=== PATIENT | male | born 1960 | race Caucasian/White ===

== ENCOUNTER → 2016-04-13 | Outpatient (REF) | payer OTHER | LOC: M LAB REF 12:06 | PROVIDERS: ATTEND Physician Assistant | DX: J02.9 Acute pharyngitis, unspecified (principal) ==

== ENCOUNTER → 2016-05-01 | Outpatient (REF) | payer OTHER | LOC: M LAB REF 12:11 | PROVIDERS: ATTEND Physician Assistant | DX: R30.0 Dysuria (principal) ==

== ENCOUNTER 2016-09-15 00:27 | Emergency (ER) | payer OTHER ==
[~2016-09-15] VITALS: Ht 185.4 cm; Wt 127.0 kg
[2016-09-15] MEDS ORDERED: RANI150C PO (01:55)
[2016-09-15] MEDS ORDERED: VIAG100T PO (01:55)
[2016-09-15 02:39] LABS: BASO % 0.6 % (0.0-1.0); EOS # 0.2 K/mm3 (0.0-0.50); EOS % 2.7 % (0.0-3.0); LARGE UNSTAINED CELL # 0.1 K/mm3 (0.0-0.4); LYMPH # 1.8 K/mm3 (1.5-4.5); LYMPH % 29.1 % (24.0-44.0); MEAN CORPUSCULAR HEMOGLOBIN 31.6 pg (27.0-33.0); MEAN CORPUSCULAR HGB CONC 33.9 g/dl (32.0-36.5); MEAN CORPUSCULAR VOLUME 93.2 fl (80.0-96.0); MONO # 0.4 K/mm3 (0.0-0.8); MONO % 6.6 % (0.0-5.0); NEUTROPHILS # 3.4 K/mm3 (1.8-7.7); PLATELET COUNT, AUTOMATED 183 k/mm3 (150-450); RED CELL DISTRIBUTION WIDTH 12.3 % (11.5-14.5); WHITE BLOOD COUNT 5.8 K/mm3 (4.0-10.0)
[2016-09-15 03:08] LABS: ANION GAP 5 MEQ/L (8-16); BLOOD UREA NITROGEN 19 MG/DL (7-18); CALCIUM LEVEL 9.3 MG/DL (8.5-10.1); CARBON DIOXIDE LEVEL 30 MEQ/L (21-32); CHLORIDE LEVEL 103 MEQ/L (98-107); CREATININE FOR GFR 1.15 MG/DL (0.70-1.30); GLOMERULAR FILTRATION RATE > 60.0 (>56); GLUCOSE, FASTING 114 MG/DL (70-105); POTASSIUM SERUM 4.3 MEQ/L (3.5-5.1); SODIUM LEVEL 138 MEQ/L (136-145)
[2016-09-15 04:10] VITALS: BP 134/80
--- NOTE | 2016-09-15 08:30 | ECGEPIP ---
Stationary ECG Study [facility] - ED Test Date: 2016-09-15 Pat Name: YOKO MAGAÑA Department: Room: - Gender: M Extern: luiza : 1960 Requested By: RAZIA YUNG Order Number: [id number] Reading MD: Cipriano Cagle Measurements Intervals Strum Rate: 81 P: 42 AZ: 160 QRS: -20 QRSD: 91 T: 9 QT: 362 QTc: 422 Interpretive Statements SINUS RHYTHM Electronically Signed On 09-15-2016 8:30:03 EDT by Cipriano Cagle
== END 2016-09-15 04:16 | disposition home or self-care (01) ==
LOC: M ED 03:09
DX: I49.1 Atrial premature depolarization (principal); K21.9 Gastro-esophageal reflux disease without esophagitis; Z88.8 Allergy status to other drugs, medicaments and biological substances; Z87.891 Personal history of nicotine dependence

== ENCOUNTER → 2016-10-31 | Outpatient (CLI) | payer OTHER ==
[~2016-10-31] MED LIST: RANI150C PO; VIAG100T PO
--- NOTE | 2016-10-31 18:31 | REP ---
Lumbar spine complete: 10/31/2016: Clinical history: Low back pain. Five views provided. The pedicles, spinous and transverse processes are grossly intact in the frontal view. There is no abnormality of the SI joints, sacral ala and foramina. Lower thoracic levels and visualized ribs intact. There is no spondylolysis or spondylolisthesis. The normal lordosis on the lateral view is maintained. The slight disc space narrowing at L4-5 and L5-S1. No compression deformity or destructive lesion. Impression: 1. Minor degenerative disc changes in the lower lumbar spine and facet arthropathy at L4-5 and L5-S1. No compression deformity, destructive lesion, spondylolysis or other acute finding. Signed by Roger Maddox MD 10/31/2016 07:13 P
== END ==
LOC: M ADAMS 13:20
PROVIDERS: ATTEND Physician Assistant Medical
DX: M54.5 Low back pain (principal)

== ENCOUNTER → 2016-11-05 | Outpatient (REF) | payer OTHER | LOC: M LAB REF 09:49 | PROVIDERS: ATTEND Physician Assistant | DX: N41.0 Acute prostatitis (principal) ==

== ENCOUNTER → 2016-11-09 | Outpatient (REF) | payer OTHER | LOC: M SMT 12:47 | PROVIDERS: ATTEND Nurse Practitioner Women's Health | DX: N48.89 Other specified disorders of penis (principal) ==

== ENCOUNTER → 2016-11-13 | Outpatient (CLI) | payer OTHER ==
--- NOTE | 2016-11-13 11:31 | REP ---
MRI lumbar spine without contrast: History: Disc degeneration. Comparison radiographs are from October 31, 2016. Technique: Sagittal and axial T1 and T2-weighted scans are acquired in the usual fashion with and without fat saturation. Sequences include spin echo, turbo spin-echo, and STIR imaging sequences. MRI findings: There is straightening of the normal lumbar lordosis. Lumbar vertebral body heights are preserved. Alignment is normal. No extra spinal abnormality is seen. Normal caliber aorta is observed. The conus medullaris is normal in position and appearance at T12-L1. There is degenerative disc narrowing and decreased disc space signal intensity at each level from L1-2 through L5-S1. No disc protrusion is seen. There is mild facet hypertrophy bilaterally at L5-S1 and to a lesser degree at L4-5. Mild facet joint fluid is seen and L4-5 bilaterally. No neural foraminal encroachment is seen. There is no evidence of spondylolysis or spondylolisthesis. Impression: Mild degenerative spondylosis changes. No disc protrusion, central canal stenosis, or neural foraminal encroachment is appreciated. Signed by Milton Freedman MD 11/13/2016 02:10 P
== END ==
LOC: M PLARAD 09:25
PROVIDERS: ATTEND Physician Assistant
DX: M51.36 Other intervertebral disc degeneration, lumbar region (principal)

== ENCOUNTER → 2016-12-11 | Outpatient (CLI) | payer OTHER ==
--- NOTE | 2016-12-11 10:47 | REP ---
Clinical: Back and flank pain. Technique: Real time new scale ultrasound examination using curved array transducer. Findings: Right kidney measures 12.5 x 6.0 x 5.0 cm and includes 8-0.3 x 2.1 x 1.8 cm upper pole hypoechoic lesion and 1.8 x 1.8 x 1.9 cm hypoechoic mid pole lesion which may represent complex cysts. No obvious nephrolithiasis or hydronephrosis. Left kidney measures 11.6 x 5.3 x 5.0 cm and includes 3.0 x 1.9 x 3.8 centimeter lobulated hypoechoic lesion in the upper pole which may represent complex cyst. No obvious nephrolithiasis or hydronephrosis. Bladder is unremarkable and without wall thickening or mass lesion currently measuring approximately 7.2 x 7.5 x 6.4 cm. Impression: Bilateral hypoechoic renal lesions likely representing complex cysts. Pre and postcontrast of the abdomen may be warranted for further, more definitive evaluation. Signed by Juan Francisco Carter MD 12/11/2016 10:39 A
--- NOTE | 2016-12-11 11:08 | REP ---
Clinical: History of testicular cyst. Technique: Real time new scale and color Doppler evaluation using linear high frequency transducer. Findings: The bilateral testicles are normal in contour, size, echogenicity and vascularity without evidence for intratesticular mass lesion, cyst, infectious/inflammatory process or torsion. Multiple large bilateral septated epididymal head cysts/ spermatoceles are identified measuring up to 19 x 16 x 9 mm on the right and 17 x 11 x 20 mm on the left. No significant hydroceles are identified. No obvious varicoceles. Right testicle measures 3.5 x 2.3 x 2.9 cm. Left testicle measures 4.7 x 2.4 x 3.1 cm. Impression: 1. Bilateral significant complex septated and/or multiple adjacent cysts noted in the epididymi (left greater than right). 2. Normal appearance the bilateral testicles. No hydroceles or varicoceles. Signed by Juan Francisco Carter MD 12/11/2016 11:00 A
== END ==
LOC: M RAD 09:04
PROVIDERS: ATTEND Urology
DX: M54.5 Low back pain (principal); N44.2 Benign cyst of testis

== ENCOUNTER → 2017-01-05 | Outpatient (CLI) | payer OTHER ==
[~2017-01-05] MED LIST changes: +ISOVUE-370 76% 100ML VIAL (Q9967) As Ordered ONE
--- NOTE | 2017-01-05 08:40 | REP ---
CT abdomen and pelvis without and with IV contrast: Without oral contrast. CT urogram. History: Renal cyst. Comparison study renal sonography December 11, 2016. CT contrast dose: 100 mL of intravenous Isovue 370. CT findings: Digital preliminary technology risk intern radiograph is unremarkable. The lung bases are clear. The liver shows minimal diffuse fatty infiltration. It is normal in size. No focal hepatic lesion is seen. There is an accessory splenule inferiorly. The spleen is otherwise unremarkable. No adrenal lesion is seen on either side. Gallbladder and pancreas are unremarkable. The kidneys show no evidence of intrarenal calculus or hydronephrosis on either side. I do not see a visible renal cyst or mass lesion in either kidney. Sonographic findings may relate to normal renal pyramids and technical considerations. In any event the CT shows no evidence of mass or cyst. No hydronephrosis or calculus. Kidneys enhance symmetrically and are morphologically intact. The left kidney measures 11.9 cm in length and the right 11.4 cm. Delayed images show no filling defect or other abnormality in the collecting system on either side. Small and large intestinal bowel loops are normal in the upper abdomen. A normal appendix is visible in the right lower quadrant. Pelvic CT images demonstrate seminal vesicles . Prostate and urinary bladder are unremarkable. No abdominal wall defect is seen. No bony destructive lesion is appreciated. Impression: Normal CT urogram. No renal mass, cyst or other lesion seen. Signed by Milton Freedman MD 01/05/2017 08:42 A
== END ==
LOC: M RAD 07:39
PROVIDERS: ATTEND Urology
DX: N28.1 Cyst of kidney, acquired (principal)
CPT/HCPCS: 74178; Q9967

== ENCOUNTER → 2017-02-12 | Outpatient (REF) | payer OTHER ==
[~2017-02-12] MED LIST changes: -ISOVUE-370 76% 100ML VIAL (Q9967) As Ordered ONE
== END ==
LOC: M SMT 16:50
PROVIDERS: ATTEND Urology
DX: R39.9 Unspecified symptoms and signs involving the genitourinary system (principal)

== ENCOUNTER → 2017-07-16 | Outpatient (REF) | payer OTHER | LOC: M LAB REF 18:38 | DX: J02.9 Acute pharyngitis, unspecified (principal) ==

== ENCOUNTER → 2017-10-17 | Outpatient (REF) | payer OTHER | LOC: M LAB REF 12:11 | DX: J02.9 Acute pharyngitis, unspecified (principal) ==

== ENCOUNTER 2024-05-28 07:25 | Day surgery (SDC) | payer OTHER ==
[~2024-05-28] VITALS: Ht 182.9 cm; Wt 129.4 kg
[~2024-05-28 07:25] MED LIST changes: +CYCL-707 PO; +FLON1SPR; +LIDOCAINE 2% 100MG/5ML SDV (FOR ANES.) As Ordered ONE; +LOSA25TA13 PO; +PEPC1TAB5 PO; +TADA20TA PO; +propofoL 200 MG/20 ML VIAL As Ordered ONE
[2024-05-28 09:16] VITALS: TEMP 97.2
[2024-05-28 09:34] VITALS: BP 141/95; O2SAT 96
== END 2024-05-28 09:42 | disposition home or self-care (01) ==
LOC: M OPP 07:25
PROVIDERS: ATTEND Internal Medicine Gastroenterology
DX: Z12.11 Encounter for screening for malignant neoplasm of colon (principal); Z80.0 Family history of malignant neoplasm of digestive organs; K64.0 First degree hemorrhoids; I10 Essential (primary) hypertension; K21.9 Gastro-esophageal reflux disease without esophagitis; G43.909 Migraine, unspecified, not intractable, without status migrainosus; Z88.8 Allergy status to other drugs, medicaments and biological substances; Z79.51 Long term (current) use of inhaled steroids; Z79.899 Other long term (current) drug therapy